=== PATIENT | male | born 1980 | race Two or more races ===

== ENCOUNTER 2020-10-06 05:53 | Emergency (ER) | payer MEDICAID, OTHER ==
[~2020-10-06] VITALS: Ht 180.3 cm; Wt 90.7 kg
[2020-10-06 06:42] VITALS: BP 141/89
== END 2020-10-06 07:21 | disposition home or self-care (01) ==
LOC: ER 05:53
DX: S60.443A External constriction of left middle finger, initial encounter (principal); S61.205A Unspecified open wound of left ring finger without damage to nail, initial encounter; W49.04XA Ring or other jewelry causing external constriction, initial encounter; Y93.89 Activity, other specified; Y92.89 Other specified places as the place of occurrence of the external cause; Y99.8 Other external cause status